=== PATIENT | female | born 1980 | race African-American/Black ===

== ENCOUNTER 2018-06-04 15:00 | Emergency (ER) | payer OTHER ==
[2018-06-04] MEDS ORDERED: Metoclopramide HCl 10 MG/2 ML VIAL ONE (16:13)
[2018-06-04] MEDS ORDERED: Acetaminophen 500 MG TAB ONE (16:13)
[2018-06-04] MEDS ORDERED: diphenhydrAMINE 50 MG/ML VIAL ONE (16:13)
[2018-06-04 17:19] LABS: Bilirubin Negative (Negative); Blood, Urine Small (Negative); Clarity CLOUDY (Clear); Glucose, Urine (Dipstick) Negative (Negative); Leukocyte Small (Negative); Nitrite Negative (Negative); Protein, Urine (Dipstick) Negative (Neg-Trace); Specific Gravity, Urine 1.017 (1.002-1.036)
[2018-06-04 17:21] LABS: Bacteria/HPF 1+ HPF (None Seen); Hyaline Casts/LPF 0-3 HYALINE CAST LPF (0-3 Hyaline); Pathc Cast-AUWi Flag 0.29 (0-2.49); Squamous Epithelial 0-3 HPF (0-3)
== END 2018-06-04 16:56 | disposition home or self-care (01) ==
LOC: ERS 15:00
DX: N39.0 Urinary tract infection, site not specified (principal); R51 Headache
CPT/HCPCS: 81003; 81015; 87086; 96365; 96375; J1200; J2765

== ENCOUNTER 2020-01-31 20:00 | Emergency (ER) | payer OTHER ==
--- NOTE | 2020-02-04 15:24 | EKG ---
Test Reason : Blood Pressure : / mmHG Vent. Rate : 048 BPM Atrial Rate : 048 BPM P-R Int : 152 ms QRS Dur : 092 ms QT Int : 434 ms P-R-T Axes : 072 058 063 degrees QTc Int : 387 ms Sinus bradycardia Otherwise normal ECG Confirmed by LYNETTE GONZALEZ, HEBER Singh ([id number]), movie editor TIM RANDHAWA ([id number]) on 02/04/2020 3:23:49 PM Referred By: Confirmed By:HEBER OJEDA MD
== END 2020-01-31 22:39 | disposition home or self-care (01) ==
LOC: ERS 20:00
DX: H61.23 Impacted cerumen, bilateral (principal); R00.2 Palpitations; G44.209 Tension-type headache, unspecified, not intractable; Z79.899 Other long term (current) drug therapy
CPT/HCPCS: 93005

== ENCOUNTER 2020-06-12 12:28 | Emergency (ER) | payer OTHER, SELFPAY ==
[2020-06-12 13:01] LABS: #Basophils 0.1 thou/uL (0.0-0.2); #Eosinphils 0.2 thou/uL (0.0-0.7); #Lymphocytes 1.7 thou/uL (1.20-3.40); #Monocytes 0.4 thou/uL (0.11-0.59); #Neutrophils 4.4 thou/uL (1.40-6.50); %Basophils 0.8 % (0.0-1.0); %Eosinophils 2.4 % (0.0-10.0); %Lymphocytes 25.7 % (21.0-51.0); %Monocytes 5.7 % (0.0-10.0); %Neutrophils 65.5 % (42.0-75.0); Hemoglobin 14.4 g/dL (12.0-16.0); Mean Corpuscular Hemoglobin 29.7 pg (27.0-31.0); Mean Corpuscular Volume 87.3 fL (78.0-98.0); Mean Platelet Volume 8.2 fL (7.4-10.4); Platelet Count 270 thou/uL (130-400); RBC Distribution Width 11.9 % (11.5-14.5); Red Blood Cell (RBC) Count 4.85 mill/uL (4.20-5.40); White Blood Cell (WBC) Count 6.6 thou/uL (4.8-10.8)
--- NOTE | 2020-06-12 13:08 | CT ---
EXAM: CT brain without contrast HISTORY: Right foot numbness COMPARISON: 02/14/2008 TECHNIQUE: Multiple contiguous axial images were obtained and a CT of the brain without contrast. FINDINGS: The brain is normal in morphology and attenuation without focal lesions or confluent areas of infarction. There is no evidence of hydrocephalus, intracranial hemorrhage, or extra-axial fluid collection. There is a bony excrescence projecting off the right frontal lobe which appears to have enlarged comp ared to the prior examination and now measures 1.5 cm in size. This appears to emanate from the outer cortex of the calvarium and does not extend through the calvarium. The visualized paranasal sin uses and mastoid air cells are well aerated. IMPRESSION: 1. No evidence of acute intracranial abnormality 2. 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
[2020-06-12 13:11] LABS: BHCG - Serum Negative (NEGATIVE); Pregs Control Background? CLEAR/WHITE (CLR/WHITE); Pregs Control Bar Appear? YES (CONTROL BAR)
[2020-06-12 13:24] LABS: ALT (SGPT) 13 U/L (8-55); AST (SGOT) 11 U/L (5-34); Alkaline Phosphatase 52 U/L (40-110); Anion Gap 12 mmol/L (10-20); BUN (Urea Nitrogen) 8 mg/dL (7.0-18.7); Bilirubin, Total 0.8 mg/dL (0.2-1.2); Calc. Creatinine Clearance 0 mL/min (70-130); Calcium 8.8 mg/dL (7.8-10.44); Carbon Dioxide 23 mmol/L (22-29); Chloride 107 mmol/L (98-107); Estimated GFR-MDRD 74; Globulin 2.9 g/dL (2.4-3.5); Glucose 129 mg/dL (70-105); Protein, Total 6.9 g/dL (6.0-8.3); Sodium 138 mmol/L (136-145)
== END 2020-06-12 14:15 | disposition home or self-care (01) ==
LOC: ERS 12:28
DX: R20.0 Anesthesia of skin (principal); R20.2 Paresthesia of skin; E78.00 Pure hypercholesterolemia, unspecified; F41.9 Anxiety disorder, unspecified; Z79.899 Other long term (current) drug therapy
CPT/HCPCS: 36415; 70450; 80053; 84703; 85025

== ENCOUNTER 2020-10-20 07:41 | Outpatient (CLI) | payer BC ==
--- NOTE | 2020-10-20 10:44 | MRI ---
MRI OF BRAIN WITH AND WITHOUT CONTRAST: INDICATION: Benign neoplasm of bones of skull. COMPARISON: Comparison is made to CT head 06/12/2020 which described a sclerotic lesion involving the right fronta l bone. This lesion was present on a prior exam dating to 02/22/2011 and shows minimal enlargement jerardo suring 14 mm AP dimension on a prior image and 16 mm on the current study is similar measurement. FINDINGS: Ventricles have normal size and position. No evidence of restricted diffusion. No evidence of mass or edema. Tiny nonspecific white matter hyperintensity is seen in the right frontal lobe white matter which is nonspecific. No evidence of pathologic white matter abnormality. No abnormal enhancement. The osseous lesion involving the right frontal lobe shows evidence of dense sclerosis on MRI. There is no enhancement. No soft tissue component. Paranasal sinuses and mastoids clear. IMPRESSION: 1. Unremarkable MRI of brain. 2. The sclerotic osseous lesion extending from the right frontal bone has benign appearance with min imal change from 2010. Osteoma would be suspected. POS: [facility]
--- NOTE | 2020-10-20 10:57 | CT ---
Exam: Head CT without contrast HISTORY: Follow-up calvarial mass COMPARISON: 06/12/2020 FINDINGS: Hemorrhage: No intraparenchymal hemorrhage or extra-axial hematoma. Brain parenchyma: Cortical bullard-white matter differentiation is preserved. No mass effect or midline shift. Basilar cisterns are patent. Ventricular system: Ventricles and sulci are patent and symmetric. Calvarium: No fracture. Stable exophytic ossified focus emanating from the right frontal calvarium, m easuring 1.5 cm. Sinuses and mastoid air cells: Adequate aeration. IMPRESSION: Stable sclerotic focus emanating from the right frontal calvarium.
[2020-10-20] MEDS ORDERED: Magnevist 469MG/ML 20 ML VIAL ONE (11:50)
== END 2020-10-20 07:42 | disposition home or self-care (01) ==
LOC: CT 07:41
PROVIDERS: ATTEND Neurological Surgery
DX: D16.4 Benign neoplasm of bones of skull and face (principal); R90.89 Other abnormal findings on diagnostic imaging of central nervous system; M89.9 Disorder of bone, unspecified
CPT/HCPCS: 70450; 70553; A9579

== ENCOUNTER 2020-12-14 03:45 | Emergency (ER) | payer BC ==
[2020-12-14 04:10] LABS: Pregnancy Test - Urine (BHCG) Negative (Negative); Pregu Control Background? CLEAR/WHITE (CLR/WHITE); Pregu Control Bar Appear? YES (CONTROL BAR)
[2020-12-14 04:12] LABS: Bilirubin Negative (Negative); Blood, Urine Negative (Negative); Clarity Clear (Clear); Glucose, Urine (Dipstick) Normal (Negative); Ketone, Urine Negative (Negative); Leukocyte 25 Leu/uL (Negative); Nitrite Negative (Negative); Protein, Urine (Dipstick) Negative (Neg-Trace); RBC/HPF 0-3 HPF (0-3); Specific Gravity, Urine 1.015 (1.002-1.036); Squamous Epithelial 0-3 HPF (0-3); Urobilinogen Normal mg/dL (Less than 2); pH, Urine 5.5 (5.0-9.0)
[2020-12-14 04:12] LABS: Specific Gravity 1.015 (1.002-1.036)
[2020-12-14 04:14] LABS: Bacteria/HPF 1+ HPF (None Seen)
[2020-12-14] MEDS ORDERED: Ketorolac Tromethamine 30 MG/ML VIAL ONE (04:22)
[2020-12-14 04:31] LABS: #Basophils 0.1 thou/uL (0.0-0.2); #Eosinphils 0.3 thou/uL (0.0-0.7); #Lymphocytes 2.4 thou/uL (1.20-3.40); #Monocytes 0.7 thou/uL (0.11-0.59); %Basophils 1.1 % (0.0-1.0); %Monocytes 7.8 % (0.0-10.0); %Neutrophils 59.1 % (42.0-75.0); Hemoglobin 13.2 g/dL (12.0-16.0); Mean Corpuscular HGB CONC 33.2 g/dL (32.0-36.0); Mean Corpuscular Hemoglobin 28.7 pg (27.0-31.0); Mean Corpuscular Volume 86.5 fL (78.0-98.0); Mean Platelet Volume 7.6 fL (7.4-10.4); Platelet Count 280 thou/uL (130-400); RBC Distribution Width 12.6 % (11.5-14.5); Red Blood Cell (RBC) Count 4.61 mill/uL (4.20-5.40); White Blood Cell (WBC) Count 8.4 thou/uL (4.8-10.8)
[2020-12-14 04:50] LABS: ALT (SGPT) 13 U/L (8-55); AST (SGOT) 11 U/L (5-34); Albumin 3.4 g/dL (3.5-5.0); Alkaline Phosphatase 47 U/L (40-110); Anion Gap 10 mmol/L (10-20); BUN (Urea Nitrogen) 12 mg/dL (7.0-18.7); Bilirubin, Total 0.5 mg/dL (0.2-1.2); Calc. Creatinine Clearance 0 mL/min (70-130); Calcium 8.1 mg/dL (7.8-10.44); Carbon Dioxide 24 mmol/L (22-29); Chloride 108 mmol/L (98-107); Globulin 2.8 g/dL (2.4-3.5); Glucose 100 mg/dL (70-105); Lipase 28 U/L (8-78); Potassium 3.7 mmol/L (3.5-5.1); Protein, Total 6.2 g/dL (6.0-8.3); Sodium 138 mmol/L (136-145)
[2020-12-14] MEDS ORDERED: Morphine 4 MG/ML VIAL ONE (05:26)
== END 2020-12-14 06:53 | disposition home or self-care (01) ==
LOC: ERS 03:45
DX: N83.201 Unspecified ovarian cyst, right side (principal); G43.909 Migraine, unspecified, not intractable, without status migrainosus; Z79.899 Other long term (current) drug therapy
CPT/HCPCS: 74177; 76856; 80053; 81003; 81015; 81025; 83690; 85025; 93976; 96374; 96375; J1885; J2270

== ENCOUNTER 2021-01-12 23:18 | Emergency (ER) | payer BC ==
[2021-01-13 01:20] LABS: #Basophils 0.1 thou/uL (0.0-0.2); #Eosinphils 0.3 thou/uL (0.0-0.7); #Lymphocytes 2.2 thou/uL (1.20-3.40); #Monocytes 0.6 thou/uL (0.11-0.59); #Neutrophils 6.1 thou/uL (1.40-6.50); %Basophils 0.9 % (0.0-1.0); %Eosinophils 2.9 % (0.0-10.0); %Lymphocytes 23.8 % (21.0-51.0); %Monocytes 6.6 % (0.0-10.0); %Neutrophils 65.8 % (42.0-75.0); Hemoglobin 12.8 g/dL (12.0-16.0); Mean Corpuscular HGB CONC 34.4 g/dL (32.0-36.0); Mean Corpuscular Hemoglobin 29.7 pg (27.0-31.0); Mean Corpuscular Volume 86.3 fL (78.0-98.0); Mean Platelet Volume 7.8 fL (7.4-10.4); Platelet Count 241 thou/uL (130-400); RBC Distribution Width 12.2 % (11.5-14.5); Red Blood Cell (RBC) Count 4.32 mill/uL (4.20-5.40); White Blood Cell (WBC) Count 9.3 thou/uL (4.8-10.8)
[2021-01-13 01:42] LABS: ALT (SGPT) 10 U/L (8-55); AST (SGOT) 12 U/L (5-34); Albumin 3.6 g/dL (3.5-5.0); Alkaline Phosphatase 48 U/L (40-110); Anion Gap 13 mmol/L (10-20); BUN (Urea Nitrogen) 12 mg/dL (7.0-18.7); Bilirubin, Total 0.4 mg/dL (0.2-1.2); Calc. Creatinine Clearance 0 mL/min (70-130); Calcium 8.6 mg/dL (7.8-10.44); Carbon Dioxide 23 mmol/L (22-29); Chloride 107 mmol/L (98-107); Globulin 2.5 g/dL (2.4-3.5); Glucose 107 mg/dL (70-105); Potassium 3.7 mmol/L (3.5-5.1); Protein, Total 6.1 g/dL (6.0-8.3); Sodium 139 mmol/L (136-145)
== END 2021-01-13 02:57 | disposition home or self-care (01) ==
LOC: ERS 23:18
DX: R07.89 Other chest pain (principal); Z79.899 Other long term (current) drug therapy; G43.909 Migraine, unspecified, not intractable, without status migrainosus
CPT/HCPCS: 36415; 71045; 80053; 84484; 85025; 93005

== ENCOUNTER 2021-02-16 17:30 | Emergency (ER) | payer BC ==
[2021-02-16 18:52] LABS: #Basophils 0.1 thou/uL (0.0-0.2); #Eosinphils 0.2 thou/uL (0.0-0.7); #Monocytes 0.6 thou/uL (0.11-0.59); #Neutrophils 5.6 thou/uL (1.40-6.50); %Basophils 0.8 % (0.0-1.0); %Eosinophils 2.3 % (0.0-10.0); %Lymphocytes 23.9 % (21.0-51.0); %Monocytes 7.1 % (0.0-10.0); %Neutrophils 65.9 % (42.0-75.0); Hemoglobin 14.4 g/dL (12.0-16.0); Mean Corpuscular Hemoglobin 29.7 pg (27.0-31.0); Mean Corpuscular Volume 87.4 fL (78.0-98.0); Mean Platelet Volume 7.8 fL (7.4-10.4); Platelet Count 275 thou/uL (130-400); RBC Distribution Width 12.3 % (11.5-14.5); Red Blood Cell (RBC) Count 4.86 mill/uL (4.20-5.40); White Blood Cell (WBC) Count 8.5 thou/uL (4.8-10.8)
[2021-02-16] MEDS ORDERED: Ketorolac Tromethamine 30 MG/ML VIAL ONE (18:54)
[2021-02-16 19:15] LABS: ALT (SGPT) 13 U/L (8-55); AST (SGOT) 15 U/L (5-34); Albumin 3.9 g/dL (3.5-5.0); Alkaline Phosphatase 56 U/L (40-110); Anion Gap 13 mmol/L (10-20); BUN (Urea Nitrogen) 12 mg/dL (7.0-18.7); Bilirubin, Total 0.3 mg/dL (0.2-1.2); Calc. Creatinine Clearance 0 mL/min (70-130); Calcium 9.1 mg/dL (7.8-10.44); Carbon Dioxide 22 mmol/L (22-29); Chloride 108 mmol/L (98-107); Globulin 2.8 g/dL (2.4-3.5); Glucose 85 mg/dL (70-105); Potassium 4.1 mmol/L (3.5-5.1); Protein, Total 6.7 g/dL (6.0-8.3); Sodium 139 mmol/L (136-145)
== END 2021-02-16 20:07 | disposition home or self-care (01) ==
LOC: ERS 17:30
DX: M94.0 Chondrocostal junction syndrome [Tietze] (principal); E78.5 Hyperlipidemia, unspecified
CPT/HCPCS: 36415; 71045; 80053; 84484; 85025; 93005; 96374; J1885

== ENCOUNTER 2021-03-07 10:05 | Outpatient (CLI) | payer BC | END 2021-03-07 10:06 | disposition home or self-care (01) | LOC: BICRAD 10:05 | PROVIDERS: ATTEND Psychiatry & Neurology Neurology | DX: M54.12 Radiculopathy, cervical region (principal) | CPT/HCPCS: 72040 ==

== ENCOUNTER 2021-03-07 11:38 | Emergency (ER) | payer BC | END 2021-03-07 13:03 | disposition left against medical advice (07) | LOC: ERS 11:38 | DX: Z53.21 Procedure and treatment not carried out due to patient leaving prior to being seen by health care provider (principal) ==